=== PATIENT | male | born 2000 | race Caucasian/White ===

== ENCOUNTER 2023-05-16 10:54 | Emergency (ER) | payer OTHER, SELFPAY ==
[2023-05-16 10:56] VITALS: BP 166/93; PULSE 74; RESP 16; TEMP 36.4; O2SAT 100; BMI 20.2
--- NOTE | 2023-05-16 11:04 | EX.ED.UPPERE ---
HPI History of Present Illness HPI Narrative: Patient presents with amputation to the distal phalanx of his left index finger. Patient is right-hand dominant. Patient states he had his finger caught in a saw. Patient states his last tetanus was 4 years ago. Patient states nothing makes his pain better and nothing makes it worse. Patient denies any paresthesias or weakness. Patient denies any other injuries. Chief Complaint: Upper Extremity Injury Informant: patient Occured/Mechanism Mechanism/Context: Yes injury Onset/Context/Timing Onset: Today Context: Sudden Onset Timing: Continuous Location: Left index finger Worsened by: Nothing Relieved by: Nothing Associated Symptoms Associated Symptoms: Negative for Parasthesia, Weakness or Loss of Funtion Narrative Tetanus Immunization: <5 years PFSH PFSH Medical History no medical history Home Medications cephalexin 500 mg capsule 500 mg PO Q6 #40 CAPSULES 05/16/23 [Rx Last Taken Unknown] hydrocodone-acetaminophen 5-325mg 5mg-325mg 1 tab PO Q6H PRN PRN Pain 3 days #10 TABLETS 05/16/23 [Rx Last Taken Unknown] Allergy/AdvReac Type Severity Reaction Status Date / Time No Known Allergies Allergy Verified 05/16/23 11:06 Surgical History no surgical history no surgical history Social History (Updated 05/16/23 @ 11:[address] Deangelo Gaines, DO) Smoking Status: Never smoker alcohol intake: never substance use type: does not use ROS ROS ED Constitutional Constitutional ED: Denies chills or fever(s) Eyes Eyes: Denies blurry vision or change in vision ENT ENT ED: Denies rhinorrhea or sore throat Cardiovascular Cardiovascular: Denies chest pain or palpitations Respiratory/Chest Respiratory/Chest: Denies cough or dyspnea Gastrointestinal Gastrointestinal: Denies nausea or vomiting Genitourinary Genitourinary ED: Denies dysuria or hematuria Musculoskeletal Musculoskeletal: Denies back pain or neck pain Integumentary Denies abscess or rash Neurologic Neurologic: Denies headache(s) or weakness Allergic/Immunologic Allergic/Immunologic ED: Denies mouth swelling or urticaria EXAM Physical Exam Const Positive well nourished and well developed General Appearance ED: well developed and NAD HEENT Reports moist mucous membranes Neck full ROM and supple Extremity Extremity Narrative: There is amputation of the distal half of the distal phalanx of the left index finger. There is mild bleeding noted. There are no foreign bodies visualized. Sensation was intact to light touch in all digits. Capillary refill was less than 2 seconds in all digits. There is good range of motion of the MP and PIP joints of the left index finger. Radial pulses are equal bilaterally. Neuro oriented x3, CN's II-XII intact bilaterally, moves all extremities, no focal motor deficits and no sensory deficits noted Sensorium / Orientation: alert Motor Exam: strength 5/5 throughout Psych mental status grossly normal Skin Skin Narrative: There is a 2 cm diameter laceration over the distal phalanx of the left index finger with amputation of the distal portion of the distal phalanx. There is moderate bleeding. There are no foreign bodies visualized. MDM MDM MDM Narrative Medical decision making narrative: Differential diagnosis includes open fracture and retained foreign body. X-rays of the left index finger will be obtained to assess for retained foreign body and fracture. Procedures Lacerations Left index finger: Length: 2 cm Depth: Fascia Shape: Amputation Prep: Sterile Conditions and Chlorhexadine Laceration repair: Digital block, Irrigated, Lidocaine, Skin sutures (5) and Subcutaneous sutures (3) Irrigated (ml): 100 Suture Information: Vicryl (3 simple interrupted subcutaneous), Ethilon (5 simple interrupted) and 4-0 Discharge Plan Triage Chief Complaint: Upper Extremity Injury Other Complaint: Wound ED Provider: Deangelo Gaines Dx/Rx/DC Orders Clinical Impression: Fingertip amputation, Open fracture of distal phalanx of left index finger Instructions: ED Fracture, Finger, Open Prescriptions: New hydrocodone-acetaminophen [hydrocodone-acetaminophen] 5-325 mg tablet 1 tab PO Q6H PRN PRN (Reason: Pain) 3 Days Qty: 10 0RF cephalexin [cephalexin] 500 mg capsule 500 mg PO Q6 Qty: 40 0RF Primary Care Provider: Peter Long Referrals: Peter Long DO [Primary Care Provider] - 1-2 Weeks Naun Cano DO [Med Staff - Active Staff] - 7 Days for suture removal NOT,DEFINED [Non-Staff] - Disposition Disposition: Home, Self Care
[2023-05-16] MEDS: Morphine 4 MG/ML Syringe IV (11:32)
[2023-05-16] MEDS: Cefazolin 1 GM/50 ML BAG IV (11:32)
--- NOTE | 2023-05-16 11:55 | RAD_ITS ---
INDICATION: Injury/Pain EXAMINATION/TECHNIQUE: X-RAY - LEFT HAND XR Fingers Min 2 Views 3 VIEWS COMPARISON: No relevant prior comparison study available FINDINGS: SOFT TISSUES: There is diffuse soft tissue swelling of the distal second finger. No radiopaque foreign body. BONES/JOINTS: There is an intra-articular comminuted fracture at the base of the second distal phalanx associated with amputation of the mid and distal distal phalanx. No sclerotic or destructive changes observed. RAD/Finger(s) Min 2 Views IMPRESSION: Amputation of the mid and distal second distal phalanx associated with a comminuted intra-articular fracture at the base of the remaining distal phalanx. Electronically Signed: Debby Ovalle MD at 12:14 EDT ,
[2023-05-16] MEDS: Lidocaine 1% (20 ml mdv) 20 ML Vial INFILT (14:50)
== END 2023-05-16 14:55 | disposition home or self-care (01) ==
PROVIDERS: Emergency Provider Emergency Medicine; PCP Family Medicine; Visit Provider Emergency Medicine
DX: S62.631B Displaced fracture of distal phalanx of left index finger, initial encounter for open fracture (principal); W23.0XXA Caught, crushed, jammed, or pinched between moving objects, initial encounter
CPT/HCPCS: 12001; 73140; 96365; 96375; 99285; A4216